=== PATIENT | female | born 1955 | race Caucasian/White ===

== ENCOUNTER → 2016-10-08 | Outpatient (CLI) | payer MEDICAID, OTHER ==
[~2016-10-08] MED LIST: OMNIPAQUE 350 MG/ML, 75ML BOTTLE ONE
== END | disposition home or self-care (01) ==
LOC: RAD 13:51
PROVIDERS: ATTEND Family Medicine
DX: J32.0 Chronic maxillary sinusitis (principal); H05.221 Edema of right orbit
CPT/HCPCS: 36415; 70487; 82565; Q9967

== ENCOUNTER → 2018-06-20 | Outpatient (CLI) | payer OTHER | END | disposition home or self-care (01) | LOC: CFH 15:07 | PROVIDERS: ATTEND Family Medicine | DX: Z12.31 Encounter for screening mammogram for malignant neoplasm of breast (principal) | CPT/HCPCS: 77063; 77067 ==

== ENCOUNTER 2018-12-05 14:24 | Emergency (ER) | payer OTHER ==
[~2018-12-05] VITALS: Ht 172.7 cm; Wt 77.7 kg
[2018-12-05] MEDS ORDERED: LIDOCAINE-MPF 1%, 5ML ONE (15:02)
[2018-12-05] MEDS ORDERED: HYDROcodone/APAP 5/325 TABLET ONE (15:13)
[2018-12-05] MEDS ORDERED: DIPH,PERTUSS(ACELL),TET VAC/PF 0.5 ML IM-VACC ONE ×2 (15:14→15:30)
[2018-12-05] MEDS ORDERED: LIDOCAINE-MPF 1%, 5ML INFIL ONE (15:30)
[2018-12-05] MEDS ORDERED: HYDROcodone/APAP 5/325 TABLET PO ONE (15:30)
--- NOTE | 2018-12-05 15:35 | NUR ---
PA AT BEDSIDE FOR LAC REPAIR
[2018-12-05] MEDS ORDERED: NEOSPORIN OINT. PKT 1 PACKET ONE (15:37)
[2018-12-05] MEDS ORDERED: L.E.T SOLUTION TP ONE (15:45)
[2018-12-05 16:13] VITALS: BP 103/52
== END 2018-12-05 16:22 | disposition home or self-care (01) ==
LOC: ED 16:16
DX: S61.212A Laceration without foreign body of right middle finger without damage to nail, initial encounter (principal); W25.XXXA Contact with sharp glass, initial encounter; Y93.E9 Activity, other interior property and clothing maintenance; Y92.009 Unspecified place in unspecified non-institutional (private) residence as the place of occurrence of the external cause; Y99.8 Other external cause status
CPT/HCPCS: 12001; 90471; 90715

== ENCOUNTER → 2019-07-24 | Outpatient (CLI) | payer OTHER | END | disposition home or self-care (01) | LOC: CFH 15:44 | PROVIDERS: ATTEND Family Medicine | DX: Z12.31 Encounter for screening mammogram for malignant neoplasm of breast (principal) | CPT/HCPCS: 77063; 77067 ==

== ENCOUNTER 2020-02-29 19:27 | Emergency (ER) | payer OTHER ==
[~2020-02-29] VITALS: Ht 172.7 cm; Wt 80.1 kg
--- NOTE | 2020-02-29 19:40 | NUR ---
PT PROVIDED ICE PACK IN TRIAGE
--- NOTE | 2020-02-29 21:10 | NUR ---
64 year old female to ED for Right wrist pain 2/2 fall on outstretched hand. She denies LOC, hitting head, or any other complaints. swelling noted to right wrist.
[2020-02-29] MEDS ORDERED: HYDROcodone/APAP 5/325 TABLET ONE (21:29)
[2020-02-29] MEDS ORDERED: HYDROcodone/APAP 5/325 TABLET PO PRN (21:30)
[2020-02-29 22:15] VITALS: BP 124/71
== END 2020-02-29 22:19 | disposition home or self-care (01) ==
LOC: ED 22:13
DX: S52.501A Unspecified fracture of the lower end of right radius, initial encounter for closed fracture (principal); S52.601A Unspecified fracture of lower end of right ulna, initial encounter for closed fracture; W18.30XA Fall on same level, unspecified, initial encounter; Y93.89 Activity, other specified; Y92.89 Other specified places as the place of occurrence of the external cause; Y99.8 Other external cause status
CPT/HCPCS: 29125; 99284

== ENCOUNTER → 2020-07-31 | Outpatient (CLI) | payer OTHER | END | disposition home or self-care (01) | LOC: CFH 15:24 | PROVIDERS: ATTEND Family Medicine | DX: Z12.39 Encounter for other screening for malignant neoplasm of breast (principal); Z12.31 Encounter for screening mammogram for malignant neoplasm of breast | CPT/HCPCS: 76641; 77063; 77067 ==